=== PATIENT | male | born 1975 | race Caucasian/White ===

== ENCOUNTER 2017-09-25 18:57 | Emergency (ER) | payer SELFPAY ==
[2017-09-25 19:18] VITALS: BP 104/60; PULSE 84; TEMP 98.5; BMI 25.0
--- NOTE | 2017-09-25 20:12 | PDOC ---
History of Present Illness - History of Present Illness Initial Comments: 09/25/17 20:20 The patient is a 42 year old male, with a significant past medical history of IDDM, who presents to the emergency department with low blood sugar and feeling weak this evening. The patient reportedly took his insulin, ate lunch and denies eating since. The patient states he feels weak, but denies syncope. He denies chest pain, shortness of breath, headache and dizziness. He denies fever, chills, nausea, vomit, diarrhea and constipation. He denies dysuria, frequency, urgency and hematuria. Allergies: NKDA His assistant activities director is Dr. Jimenez in [place] His primary care physician is Dr. Shawn Mathew <Brittney Garcia - Last Filed: 09/25/17 20:19> - General History Source: Patient <Alex Wei - Last Filed: 09/25/17 20:47> - General Chief Complaint: Blood Sugar Problem Stated Complaint: DIABETES COMPLICATION Time Seen by Provider: 09/25/17 20:10 Past History <Brittney Garcia - Last Filed: 09/25/17 20:19> - Past Medical History COPD: No Diabetes: Yes - Surgical History Abdominal Surgery: Yes (r inguinal hernia repair) - Family Disease History Family Disease History: Diabetes: Grandparents - Suicide/Smoking/Psychosocial Hx Smoking History: Current every day smoker Have you smoked in the past 12 months: Yes Number of Cigarettes Smoked Daily: 20 Information on smoking cessation initiated: No Hx Alcohol Use: No Drug/Substance Use Hx: No Substance Use Type: None <Alex Wei - Last Filed: 09/25/17 20:47> - Past Medical History Allergies/Adverse Reactions: Allergies Allergy/AdvReac Type Severity Reaction Status Date / Time No Known Allergies Allergy Verified 02/27/16 11:15 Home Medications: Ambulatory Orders Insulin Glargine,Hum.rec.anlog [Lantus (nf)] 30 units SQ HS 02/21/16 Insulin Lispro [Humalog] 10 unit SQ TID 02/21/16 Review of Systems - Review of Systems Able to Perform ROS?: Yes Comments:: 09/25/17 20:20 CONSTITUTIONAL: (+) slight weakness. Absent: fever, chills, diaphoresis, malaise, loss of appetite HEENT: Absent: rhinorrhea, nasal congestion, throat pain, throat swelling, difficulty swallowing, mouth swelling, ear pain, eye pain, visual Changes CARDIOVASCULAR: Absent: chest pain, syncope, palpitations, irregular heart rate, lightheadedness , peripheral edema RESPIRATORY: Absent: cough, shortness of breath, dyspnea with exertion, orthopnea, wheezing, stridor, hemoptysis GASTROINTESTINAL: Absent: abdominal pain, abdominal distension, nausea, vomiting, diarrhea, constipation, melena, hematochezia GENITOURINARY: Absent: dysuria, frequency, urgency, hesitancy, hematuria, flank pain, genital pain MUSCULOSKELETAL: Absent: myalgia, arthralgia, joint swelling SKIN: Absent: rash, itching, pallor HEMATOLOGIC/IMMUNOLOGIC: Absent: easy bleeding, easy bruising, lymphadenopathy, frequent infections ENDOCRINE: (+) low blood sugar. Absent: unexplained weight gain, unexplained weight loss, heat intolerance, cold intolerance NEUROLOGIC: Absent: headache, focal weakness or paresthesias, dizziness, unsteady gait, seizure, mental status changes, bladder or bowel incontinence PSYCHIATRIC: Absent: anxiety, depression, suicidal or homicidal ideation, hallucinations. <Brittney Garcia - Last Filed: 09/25/17 20:19> *Physical Exam - Vital Signs Last Vital Signs Temp Pulse Resp BP Pulse Ox 98.5 F 84 20 104/60 99 09/25/17 19:10 09/25/17 19:10 09/25/17 19:10 09/25/17 19:10 09/25/17 19:10 - Physical Exam Comments: 09/25/17 20:21 GENERAL: Well developed, well nourished. Awake and alert. No acute distress. HEENT: Normocephalic, atraumatic. PERRLA, EOMI. No conjunctival pallor. Sclera are non- icteric. Moist mucous membranes. Oropharynx is clear. NECK: Supple. Full ROM. No JVD. Carotid pulses 2+ and symmetric, without bruits. No thyromegaly. No lymphadenopathy. CARDIOVASCULAR: Regular rate and rhythm. No murmurs, rubs, or gallops. Distal pulses are 2+ and symmetric. PULMONARY: No evidence of respiratory distress. Lungs clear to auscultation bilaterally. No wheezing, rales or rhonchi. ABDOMINAL: Soft. Non-tender. Non-distended. No rebound or guarding. No organomegaly. Normoactive bowel sounds. MUSCULOSKELETAL Normal range of motion at all joints. No bony deformities or tenderness. No CVA tenderness. EXTREMITIES: No cyanosis. No clubbing. No edema. No calf tenderness. SKIN: Warm and dry. Normal capillary refill. No rashes. No jaundice. NEUROLOGICAL: Alert, awake, appropriate. Cranial nerves 2-12 intact. Normoreflexic in the upper and lower extremities. Normal speech. Toes are down-going bilaterally. Gait is normal without ataxia. PSYCHIATRIC: Cooperative. Good eye contact. Appropriate mood and affect. <Brittney Garcia - Last Filed: 09/25/17 20:19> - Vital Signs Last Vital Signs Temp Pulse Resp BP Pulse Ox 98.5 F 84 20 104/60 99 09/25/17 19:10 09/25/17 19:10 09/25/17 19:10 09/25/17 19:10 09/25/17 19:10 <Alex Wei - Last Filed: 09/25/17 20:47> ED Treatment Course - ADDITIONAL ORDERS Additional order review: Laboratory Results 09/25/17 19:21 POC Glucometer [id number] 09/25/17 19:21 POC Glucometer [id number] <Brittney Garcia - Last Filed: 09/25/17 20:19> - ADDITIONAL ORDERS Additional order review: Laboratory Results 09/25/17 19:21 POC Glucometer [id number] 09/25/17 19:21 POC Glucometer [id number] <Alex Wei - Last Filed: 09/25/17 20:47> Medical Decision Making - Medical Decision Making 09/25/17 20:45 Dr. Wei: The scribe's documentation has been prepared under my direction and personally reviewed by me in its entirery. I confirm that the note above accurately reflects all work, treatment, procedures, and medical decision making performed by me. 09/25/17 20:46 Pt blood sugar is 127. Eat a sandwich. Will discharge <Alex Wei - Last Filed: 09/25/17 20:47> *DC/Admit/Observation/Transfer - Attestations Scribe Attestion: 09/25/17 20:22 Documentation prepared by Brittney Garcia, acting as medical chemist for Alex Wei DO <Brittney Garcia - Last Filed: 09/25/17 20:19> - Discharge Dispostion Admit: No <Alex Wei - Last Filed: 09/25/17 20:47> Diagnosis at time of Disposition: Type 1 diabetes mellitus, Hypoglycemia - Discharge Dispostion Disposition: HOME Condition at time of disposition: Stable - Referrals Referrals: Shawn Mathew [Primary Care Provider] - - Patient Instructions Printed Discharge Instructions: Type 1 Diabetes, DI for Hypoglycemia Additional Instructions: Please eat frequently as to prevent low blood sugars. Follow up with your doctor as needed. - Post Discharge Activity
== END 2017-09-25 20:55 | disposition home or self-care (01) ==
LOC: JER 18:57
DX: E10.69 Type 1 diabetes mellitus with other specified complication (principal); E10.649 Type 1 diabetes mellitus with hypoglycemia without coma; Z79.4 Long term (current) use of insulin; F17.210 Nicotine dependence, cigarettes, uncomplicated
CPT/HCPCS: 99281-25